=== PATIENT | female | born 1980 | race Two or more races ===

== ENCOUNTER 2023-09-30 00:01 | Emergency (ER) | payer MEDICAID ==
[~2023-09-30] VITALS: Ht 162.6 cm; Wt 86.0 kg
[2023-09-30 01:00] VITALS: PULSE 85; RESP 14; O2SAT 95
[2023-09-30 01:15] VITALS: TEMP 98.5
[2023-09-30 04:11] VITALS: BP 110/65; PULSE 95; RESP 19; O2SAT 95
== END 2023-09-30 04:10 | disposition home or self-care (01) ==
LOC: ER 00:01 → EDBD 00:01 → ER 04:10
DX: F10.129 Alcohol abuse with intoxication, unspecified (principal); Y90.0 Blood alcohol level of less than 20 mg/100 ml